=== PATIENT | female | born 2000 | race African-American/Black ===

== ENCOUNTER 2022-12-22 11:00 | Emergency (ER) | payer OTHER ==
[2022-12-22 11:56] LABS: Bilirubin Neg (Negative); Blood, Urine Negative (Negative); Clarity Cloudy (Clear); Glucose, Urine (Dipstick) Normal (Negative); Ketone, Urine Negative (Negative); Leukocyte 25 (Negative); Nitrite Negative (Negative); Protein, Urine (Dipstick) 30 mg/dl (Neg-Trace); Specific Gravity, Urine 1.015 (1.005-1.030); Urobilinogen Normal mg/dL (Less than 2)
[2022-12-22 12:03] LABS: CAUTI Indications for Culture Pregnancy; RBC/HPF None Seen HPF (0-3); WBC/HPF None Seen HPF (0-3)
[2022-12-22 12:04] LABS: Bacteria/HPF 1+ HPF (None Seen)
[2022-12-22 12:05] LABS: Urine Culture Reflex Yes Yes
[2022-12-22] MEDS ORDERED: Acetaminophen 500 MG TAB ONE (13:10)
== END 2022-12-22 13:10 | disposition home or self-care (01) ==
LOC: CSHERS 11:00
DX: O99.891 Other specified diseases and conditions complicating pregnancy (principal); R10.31 Right lower quadrant pain; R10.32 Left lower quadrant pain; O10.912 Unspecified pre-existing hypertension complicating pregnancy, second trimester; V43.02XA Car driver injured in collision with other type car in nontraffic accident, initial encounter; Y93.89 Activity, other specified; Y92.481 Parking lot as the place of occurrence of the external cause; Z3A.15 15 weeks gestation of pregnancy
CPT/HCPCS: 76815; 81001; 84702; 86900; 86901; 87086

== ENCOUNTER 2023-01-16 19:49 | Day surgery (SDC) | payer OTHER ==
[2023-01-16 20:45] LABS: #Eosinphils 0.2 10x3/uL (0.0-0.5); #Monocytes 0.7 10x3/uL (0.0-1.1); %Basophils 0.4 % (0.0-2.0); %Eosinophils 3.4 % (0.0-6.0); %Monocytes 10.1 % (0.0-10.0); %Neutrophils 58.8 % (40.0-75.0); Hematocrit 33.4 % (34.9-44.5); Hemoglobin 11.4 g/dL (12.0-15.5); Mean Corpuscular HGB CONC 34.1 g/dL (32.0-36.0); Mean Corpuscular Hemoglobin 29.8 pg (27.0-33.0); Mean Corpuscular Volume 87.2 fl (81.6-98.3); Mean Platelet Volume 10.2 fl (7.4-10.4); Platelet Count 264 10x3/uL (150-450); RBC Distribution Width 13.8 % (11.5-14.5); Red Blood Cell (RBC) Count 3.83 10x6/uL (3.90-5.03); White Blood Cell (WBC) Count 6.9 10x3/uL (3.5-10.5)
[2023-01-16 20:45] LABS: Bilirubin Neg (Negative); Blood, Urine 250 (Negative); Clarity Slightly Cloudy (Clear); Glucose, Urine (Dipstick) Normal (Negative); Ketone, Urine Negative (Negative); Leukocyte 100 (Negative); Nitrite Negative (Negative); Protein, Urine (Dipstick) 30 mg/dl (Neg-Trace); Specific Gravity, Urine 1.015 (1.005-1.030); Urobilinogen Normal mg/dL (Less than 2)
[2023-01-16 20:52] LABS: RBC/HPF Greater than 50 HPF (0-3)
[2023-01-16 20:53] LABS: Bacteria/HPF Rare-Few HPF (None Seen); CAUTI Indications for Culture Acute Hematuria
[2023-01-16 20:55] LABS: Urine Culture Reflex No No
[2023-01-16 21:00] LABS: ALT (SGPT) 12 U/L (8-55); AST (SGOT) 21 U/L (5-34); Albumin 3.6 g/dL (3.5-5.0); Alkaline Phosphatase 66 U/L (40-100); Anion Gap 16 mmol/L (10-20); BUN (Urea Nitrogen) 5 mg/dL (7.0-18.7); Bilirubin, Total Less than 0.2 mg/dL (0.2-1.2); Calc. Creatinine Clearance 0 mL/min (70-130); Calcium 9.6 mg/dL (7.8-10.44); Carbon Dioxide 19 mmol/L (22-29); Chloride 105 mmol/L (98-107); Estimated GFR 130; Globulin 3.9 g/dL (2.4-3.5); Glucose 96 mg/dL (70-105); Potassium 3.4 mmol/L (3.5-5.1); Protein, Total 7.5 g/dL (6.0-8.3); Sodium 137 mmol/L (136-145)
[2023-01-16 22:45] VITALS: BMI 30.2
== END 2023-01-16 23:57 | disposition home or self-care (01) ==
LOC: CSHERS 19:49 → CSHLD/OP 22:19 → CSHLD 22:33 → UNDOADMOB 22:33 → CSHLD 23:00 → CSHLD/OP 23:57
PROVIDERS: ATTEND Family Medicine
DX: O99.891 Other specified diseases and conditions complicating pregnancy (principal); R31.9 Hematuria, unspecified; R10.30 Lower abdominal pain, unspecified; M54.50 Low back pain, unspecified; O09.212 Supervision of pregnancy with history of pre-term labor, second trimester; Z3A.18 18 weeks gestation of pregnancy
CPT/HCPCS: 76815; 80053; 81001; 84702; 85025; 86900; 86901; 99283

== ENCOUNTER 2023-01-25 12:17 | Outpatient (CLI) | payer OTHER | END 2023-01-25 12:18 | disposition home or self-care (01) | LOC: CSHULT 12:17 | PROVIDERS: ATTEND Nurse Practitioner Women's Health | DX: O09.892 Supervision of other high risk pregnancies, second trimester (principal); Z3A.20 20 weeks gestation of pregnancy | CPT/HCPCS: 76805 ==

== ENCOUNTER 2023-03-12 12:44 | Day surgery (SDC) | payer OTHER ==
[2023-03-12 13:13] VITALS: BMI 30.5
[2023-03-12] MEDS ORDERED: Cyclobenzaprine 10 MG TAB PO SCH (14:00)
[2023-03-12] MEDS ORDERED: Acetaminophen 500 MG TAB PO SCH (14:00)
[2023-03-12 14:18] LABS: Bilirubin Neg (Negative); Blood, Urine Negative (Negative); Clarity Cloudy (Clear); Glucose, Urine (Dipstick) Normal (Negative); Ketone, Urine Negative (Negative); Leukocyte 25 (Negative); Nitrite Negative (Negative); Protein, Urine (Dipstick) Negative (Neg-Trace); Urobilinogen Normal mg/dL (Less than 2)
[2023-03-12 14:35] LABS: CAUTI Indications for Culture Pelvic or flank pain; RBC/HPF 0-3 HPF (0-3)
[2023-03-12 14:36] LABS: Bacteria/HPF 1+ HPF (None Seen)
[2023-03-12 14:38] LABS: Urine Culture Reflex No No
[2023-03-12] MEDS ORDERED: cefTRIAXone (ROCEPHIN) 1 GM VIAL IM SCH ×2 (14:45→15:00)
[2023-03-12] MEDS ORDERED: Lidocaine 1% PF 5 ML VIAL FS SCH (15:00)
== END 2023-03-12 15:25 | disposition home or self-care (01) ==
LOC: CSHLD/OP 12:44
PROVIDERS: ATTEND Family Medicine
DX: O99.891 Other specified diseases and conditions complicating pregnancy (principal); R10.2 Pelvic and perineal pain; O34.211 Maternal care for low transverse scar from previous cesarean delivery; O23.43 Unspecified infection of urinary tract in pregnancy, third trimester; N39.0 Urinary tract infection, site not specified; Z79.899 Other long term (current) drug therapy; Z3A.26 26 weeks gestation of pregnancy
CPT/HCPCS: 81001; 87480; 87510; 87660; J0696

== ENCOUNTER 2023-03-22 14:06 | Day surgery (SDC) | payer OTHER ==
[2023-03-22 14:47] VITALS: BMI 30.5
[2023-03-22] MEDS ORDERED: hydrALAZINE 20 MG/ML VIAL SLOW IVP PRN (15:10)
[2023-03-22 15:41] LABS: Bilirubin Neg (Negative); Blood, Urine Negative (Negative); Clarity Clear (Clear); Glucose, Urine (Dipstick) Normal (Negative); Ketone, Urine Negative (Negative); Leukocyte 25 (Negative); Nitrite Negative (Negative); Protein, Urine (Dipstick) 30 mg/dl (Neg-Trace); Specific Gravity, Urine 1.015 (1.005-1.030); Urobilinogen Normal mg/dL (Less than 2)
[2023-03-22 16:01] LABS: Bacteria/HPF None Seen HPF (None Seen); RBC/HPF 0-3 HPF (0-3); Squamous Epithelial 0-3 HPF (0-3); WBC/HPF 0-3 HPF (0-3)
[2023-03-22] MEDS ORDERED: Acetaminophen 500 MG TAB PO SCH (16:30)
== END 2023-03-22 17:00 | disposition home or self-care (01) ==
LOC: CSHLD/OP 14:06
PROVIDERS: ATTEND Family Medicine
DX: O99.891 Other specified diseases and conditions complicating pregnancy (principal); M54.9 Dorsalgia, unspecified; Z3A.28 28 weeks gestation of pregnancy; Z79.899 Other long term (current) drug therapy
CPT/HCPCS: 76815; 81003; 81015; 87086; 99283

== ENCOUNTER 2023-04-16 20:53 | Day surgery (SDC) | payer OTHER ==
[2023-04-16] MEDS ORDERED: hydrALAZINE 20 MG/ML VIAL SLOW IVP PRN (22:05)
[2023-04-16] MEDS ORDERED: Acetaminophen 500 MG TAB PO SCH (22:15)
[2023-04-16 22:34] VITALS: BMI 29.7
[2023-04-16 22:48] LABS: #Basophils 0.1 10x3/uL (0.0-0.2); #Eosinphils 0.2 10x3/uL (0.0-0.5); #Monocytes 0.9 10x3/uL (0.0-1.1); #Neutrophils 4.5 10x3/uL (1.5-8.4); %Basophils 0.8 % (0.0-2.0); %Eosinophils 2.2 % (0.0-6.0); %Lymphocytes 22.9 % (18.0-47.0); %Monocytes 12.3 % (0.0-10.0); %Neutrophils 61.4 % (40.0-75.0); Hematocrit 30.9 % (34.9-44.5); Hemoglobin 10.1 g/dL (12.0-15.5); Mean Corpuscular HGB CONC 32.7 g/dL (32.0-36.0); Mean Corpuscular Hemoglobin 28.5 pg (27.0-33.0); Mean Platelet Volume 10.2 fl (7.4-10.4); Platelet Count 279 10x3/uL (150-450); RBC Distribution Width 13.4 % (11.5-14.5); Red Blood Cell (RBC) Count 3.55 10x6/uL (3.90-5.03); White Blood Cell (WBC) Count 7.3 10x3/uL (3.5-10.5)
[2023-04-16 23:22] LABS: ALT (SGPT) 13 U/L (8-55); AST (SGOT) 20 U/L (5-34); Albumin 3.4 g/dL (3.5-5.0); Alkaline Phosphatase 112 U/L (40-110); Anion Gap 12 mmol/L (10-20); BUN (Urea Nitrogen) 7 mg/dL (7.0-18.7); Bilirubin, Total 0.2 mg/dL (0.2-1.2); Calc. Creatinine Clearance 183 mL/min (70-130); Calcium 8.9 mg/dL (7.8-10.44); Carbon Dioxide 22 mmol/L (22-29); Chloride 105 mmol/L (98-107); Estimated GFR 128; Glucose 79 mg/dL (70-105); Potassium 3.5 mmol/L (3.5-5.1); Protein, Total 7.4 g/dL (6.0-8.3); Sodium 135 mmol/L (136-145)
== END 2023-04-16 23:48 | disposition home or self-care (01) ==
LOC: CSHLD/OP 20:53
PROVIDERS: ATTEND Family Medicine
DX: O47.03 False labor before 37 completed weeks of gestation, third trimester (principal); O34.211 Maternal care for low transverse scar from previous cesarean delivery; O99.891 Other specified diseases and conditions complicating pregnancy; R51.9 Headache, unspecified; R03.0 Elevated blood-pressure reading, without diagnosis of hypertension; O99.013 Anemia complicating pregnancy, third trimester; D64.9 Anemia, unspecified; O23.593 Infection of other part of genital tract in pregnancy, third trimester; B96.89 Other specified bacterial agents as the cause of diseases classified elsewhere; Z79.899 Other long term (current) drug therapy; Z87.59 Personal history of other complications of pregnancy, childbirth and the puerperium; Z3A.31 31 weeks gestation of pregnancy
CPT/HCPCS: 80053; 82570; 84156; 85025; 87480; 87510; 87660

== ENCOUNTER 2023-04-23 04:14 | Day surgery (SDC) | payer OTHER ==
[2023-04-23 04:32] VITALS: BMI 30.7
[2023-04-23] MEDS ORDERED: hydrALAZINE 20 MG/ML VIAL SLOW IVP PRN (05:12)
[2023-04-23] MEDS ORDERED: Lactated Ringer's 1,000 ML IV SCH (05:15)
[2023-04-23 05:54] LABS: Bilirubin Neg (Negative); Blood, Urine Negative (Negative); Glucose, Urine (Dipstick) Normal (Negative); Ketone, Urine Negative (Negative); Leukocyte 100 (Negative); Nitrite Negative (Negative); Protein, Urine (Dipstick) Negative (Neg-Trace); Urobilinogen Normal mg/dL (Less than 2)
[2023-04-23 05:56] LABS: #Basophils 0.1 10x3/uL (0.0-0.2); #Eosinphils 0.1 10x3/uL (0.0-0.5); #Monocytes 0.8 10x3/uL (0.0-1.1); #Neutrophils 4.4 10x3/uL (1.5-8.4); %Basophils 0.7 % (0.0-2.0); %Eosinophils 1.8 % (0.0-6.0); %Lymphocytes 21.2 % (18.0-47.0); %Monocytes 11.2 % (0.0-10.0); %Neutrophils 64.4 % (40.0-75.0); Hematocrit 31.8 % (34.9-44.5); Hemoglobin 10.4 g/dL (12.0-15.5); Mean Corpuscular HGB CONC 32.7 g/dL (32.0-36.0); Mean Corpuscular Hemoglobin 28.3 pg (27.0-33.0); Mean Corpuscular Volume 86.6 fl (81.6-98.3); Mean Platelet Volume 10.6 fl (7.4-10.4); Platelet Count 261 10x3/uL (150-450); RBC Distribution Width 14.5 % (11.5-14.5); Red Blood Cell (RBC) Count 3.67 10x6/uL (3.90-5.03); White Blood Cell (WBC) Count 6.8 10x3/uL (3.5-10.5)
[2023-04-23 06:06] LABS: Clarity Clear (Clear)
[2023-04-23 06:11] LABS: ALT (SGPT) 12 U/L (8-55); AST (SGOT) 23 U/L (5-34); Albumin 3.3 g/dL (3.5-5.0); Alkaline Phosphatase 102 U/L (40-110); Anion Gap 15 mmol/L (10-20); BUN (Urea Nitrogen) 4 mg/dL (7.0-18.7); Bacteria/HPF Rare-Few HPF (None Seen); Bilirubin, Total 0.2 mg/dL (0.2-1.2); CAUTI Indications for Culture Pregnancy; Calc. Creatinine Clearance 212 mL/min (70-130); Calcium 8.8 mg/dL (7.8-10.44); Carbon Dioxide 16 mmol/L (22-29); Chloride 108 mmol/L (98-107); Estimated GFR 131; Globulin 3.9 g/dL (2.4-3.5); Glucose 77 mg/dL (70-105); Potassium 3.7 mmol/L (3.5-5.1); Protein, Total 7.2 g/dL (6.0-8.3); RBC/HPF 0-3 HPF (0-3); Sodium 135 mmol/L (136-145); Squamous Epithelial 0-3 HPF (0-3); WBC/HPF 0-3 HPF (0-3)
[2023-04-23 06:12] LABS: Urine Culture Reflex Yes Yes
[2023-04-23] MEDS ORDERED: cefTRIAXone\\ROCEPHIN 1 GM in Sodium Chloride 0.9% 100 ML IVPB SCH (07:30)
== END 2023-04-23 08:40 | disposition home health service (06) ==
LOC: CSHLD/OP 04:14
PROVIDERS: ATTEND Family Medicine
DX: O47.03 False labor before 37 completed weeks of gestation, third trimester (principal); O99.013 Anemia complicating pregnancy, third trimester; D64.9 Anemia, unspecified; O23.43 Unspecified infection of urinary tract in pregnancy, third trimester; N39.0 Urinary tract infection, site not specified; O34.13 Maternal care for benign tumor of corpus uteri, third trimester; Z86.73 Personal history of transient ischemic attack (TIA), and cerebral infarction without residual deficits; Z79.899 Other long term (current) drug therapy; Z3A.32 32 weeks gestation of pregnancy
CPT/HCPCS: 36415; 80053; 81001; 85025; 87086; 96360; 96366; 99283; J0696; J3490

== ENCOUNTER 2023-04-24 12:02 | Day surgery (SDC) | payer OTHER ==
[2023-04-24 12:29] VITALS: BMI 30.7
== END 2023-04-24 13:45 | disposition home or self-care (01) ==
LOC: CSHLD/OP 12:02 → EDSTATUS 12:14 → CSHLD/OP 13:45
PROVIDERS: ATTEND Family Medicine
DX: O47.03 False labor before 37 completed weeks of gestation, third trimester (principal); O99.013 Anemia complicating pregnancy, third trimester; D64.9 Anemia, unspecified; O23.43 Unspecified infection of urinary tract in pregnancy, third trimester; O34.211 Maternal care for low transverse scar from previous cesarean delivery; Z86.73 Personal history of transient ischemic attack (TIA), and cerebral infarction without residual deficits; Z79.899 Other long term (current) drug therapy; Z3A.32 32 weeks gestation of pregnancy
CPT/HCPCS: 99282

== ENCOUNTER 2023-05-07 08:27 | Day surgery (SDC) | payer OTHER ==
[2023-05-07 09:00] VITALS: BMI 30.5
[2023-05-07] MEDS ORDERED: hydrALAZINE 20 MG/ML VIAL SLOW IVP PRN (09:41)
[2023-05-07] MEDS ORDERED: Lactated Ringer's 1,000 ML IV SCH (09:45)
[2023-05-07 10:00] LABS: Bilirubin Neg (Negative); Blood, Urine Negative (Negative); Clarity Clear (Clear); Glucose, Urine (Dipstick) Normal (Negative); Ketone, Urine Negative (Negative); Leukocyte Negative (Negative); Nitrite Negative (Negative); Protein, Urine (Dipstick) 15 mg/dl (Neg-Trace); Specific Gravity, Urine 1.015 (1.005-1.030); Urobilinogen Normal mg/dL (Less than 2); pH, Urine 6.5 (5.0-9.0)
[2023-05-07 10:15] LABS: Bacteria/HPF None Seen HPF (None Seen); CAUTI Indications for Culture Pregnancy; RBC/HPF None Seen HPF (0-3); Squamous Epithelial 0-3 HPF (0-3); WBC/HPF None Seen HPF (0-3)
[2023-05-07 10:17] LABS: Urine Culture Reflex Yes Yes
[2023-05-07] MEDS: Terbutaline Sulfate 1 MG/ML VIAL SC SCH (12:44)
== END 2023-05-07 13:28 | disposition home or self-care (01) ==
LOC: CSHLD/OP 08:27
PROVIDERS: ATTEND Family Medicine
DX: O47.03 False labor before 37 completed weeks of gestation, third trimester (principal); O36.8330 Maternal care for abnormalities of the fetal heart rate or rhythm, third trimester, not applicable or unspecified; R00.0 Tachycardia, unspecified; O00.01 Abdominal pregnancy with intrauterine pregnancy; O34.211 Maternal care for low transverse scar from previous cesarean delivery; Z79.899 Other long term (current) drug therapy; Z3A.34 34 weeks gestation of pregnancy
CPT/HCPCS: 76819; 81001; 87086; J3105

== ENCOUNTER 2023-05-19 05:24 | Inpatient (IN) | payer OTHER ==
[2023-05-18 11:53] LABS: Hematocrit 32.3 % (34.9-44.5); Hemoglobin 10.3 g/dL (12.0-15.5); Platelet Count 257 10x3/uL (150-450)
[2023-05-18 13:15] LABS: HBSAg Index 0.29 S/CO (0-0.99); Hep B Surf Ag Non-Reactive S/CO (NonReactive)
[2023-05-18 13:17] LABS: Syphilis Antibody Nonreactive (Nonreactive); Syphilis Antibody Index 0.06 S/CO (<1.00 Non-Reactive)
[2023-05-19] MEDS: Lactated Ringer's 1,000 ML IV SCH (06:00)
[2023-05-19] MEDS ORDERED: Bicitra 30 ML UDCUP PO PRN (06:20)
[2023-05-19] MEDS ORDERED: Promethazine HCl 25 MG/ML VIAL IM PRN ×3 (06:20→13:37)
[2023-05-19] MEDS ORDERED: Misoprostol 200 MCG TAB PR PRN (06:20)
[2023-05-19] MEDS ORDERED: Carboprost 250 MCG/ML AMP IM PRN (06:20)
[2023-05-19] MEDS ORDERED: Methylergonovine 0.2 MG/ML VIAL IM PRN (06:20)
[2023-05-19] MEDS ORDERED: hydrALAZINE 20 MG/ML VIAL SLOW IVP PRN ×2 (06:20→13:37)
[2023-05-19] MEDS ORDERED: Oxytocin 30 units/NS 500 ML 500 ML IV SCH (06:20)
[2023-05-19] MEDS ORDERED: Tranexamic Acid 1,000 MG/10 ML VIAL IVP PRN (06:20)
[2023-05-19] MEDS ORDERED: Ondansetron PF 4 MG/2 ML Vial IVP PRN ×4 (06:20→13:37)
[2023-05-19] MEDS ORDERED: Diphenoxylate HCl/Atropine Tablet PO PRN (06:20)
[2023-05-19 06:26] VITALS: BMI 31.4
[2023-05-19] MEDS: Famotidine/PF 20 mg/2ml Vial SLOW IVP PRN (08:25)
[2023-05-19] MEDS: CEFAZOLIN 2 GM in Sodium Chloride 0.9% 100 ML IVPB SCH (08:25)
[2023-05-19] MEDS ORDERED: fentaNYL 50 mcg/mL 1 mL Vial SLOW IVP PRN (10:25)
[2023-05-19] MEDS ORDERED: Naloxone HCl 0.4 mg/ml Vial IV PRN (10:25)
[2023-05-19] MEDS ORDERED: Naloxone HCl 0.4 mg/ml Vial IVP PRN ×2 (10:25)
[2023-05-19] MEDS ORDERED: Promethazine HCl 25 MG SUPP PR PRN (10:25)
[2023-05-19] MEDS ORDERED: Ketorolac Tromethamine 30 MG (1 mL) VIAL IVP PRN (10:25)
[2023-05-19] MEDS ORDERED: Meperidine HCl/PF 25 MG (1 mL) VIAL SLOW IVP PRN (10:25)
[2023-05-19] MEDS ORDERED: Moisturizing Cream (Eucerin) 113 GM JAR TOP PRN (10:25)
[2023-05-19] MEDS ORDERED: HYDROmorphone 0.5 MG/0.5 ML SYRINGE SLOW IVP PRN (10:25)
[2023-05-19] MEDS ORDERED: Communication Order-Pharmacy FS SCH (10:30)
[2023-05-19] MEDS ORDERED: Lanolin Ointment 7 GM TUBE TOP PRN (13:37)
[2023-05-19] MEDS ORDERED: Boostrix 0.5 ML (Tdap) VIAL (>/=7 yrs of age) IM ONE (13:37)
[2023-05-19] MEDS ORDERED: Bisacodyl 10 MG SUPP PR PRN (13:37)
[2023-05-19] MEDS ORDERED: Simethicone Chewable 80 MG TAB PO PRN (13:37)
[2023-05-19] MEDS ORDERED: diphenhydrAMINE 25 MG CAP PO PRN (13:37)
[2023-05-19] MEDS: Ketorolac Tromethamine 30 MG (1 mL) VIAL ONE (13:45)
[2023-05-19] MEDS: ePHEDrine Sulfate 50 MG/10 ML VIAL ONE (13:45)
[2023-05-19] MEDS: Dexamethasone 4 mg/ml Vial ONE (13:45)
[2023-05-19] MEDS: Glycopyrrolate 0.2 MG/ML 5 ML SYRINGE ONE (13:45)
[2023-05-19] MEDS: Ondansetron PF 4 MG/2 ML Vial ONE (13:46)
[2023-05-19] MEDS: Morphine PF 10 MG/10 ML VIAL ONE (13:46)
[2023-05-19] MEDS: diphenhydrAMINE 50 MG/ML VIAL ONE (13:47)
[2023-05-19] MEDS: Docusate 100 MG CAP PO SCH ×2 (13:47→21:31)
[2023-05-19] MEDS: PHENYLEPHRINE-NS 100 MCG/ML 10 ML SYRINGE ONE (13:47)
[2023-05-19] MEDS: Phenylephrine 40 MG/NS 250 ML 0 ML ONE (13:47)
[2023-05-19] MEDS: Oxytocin 10 UNITS/ML VIAL ONE (13:47)
[2023-05-19] MEDS: Ferrous Sulfate 325 MG TAB PO SCH ×2 (13:48→21:30)
[2023-05-19] MEDS: Prenatal Vitamin 1 TAB PO SCH (13:48)
[2023-05-19] MEDS: diphenhydrAMINE 50 MG/ML VIAL IVP PRN (15:29)
[2023-05-19] MEDS: Ketorolac Tromethamine 30 MG (1 mL) VIAL IVP SCH (15:30)
[2023-05-19] MEDS ORDERED: HYDROcodone/Acetaminophen 5/325 mg Tablet PO PRN (22:30)
[2023-05-20 04:17] LABS: Hematocrit 29.6 % (34.9-44.5); Hemoglobin 9.3 g/dL (12.0-15.5); Mean Corpuscular HGB CONC 31.4 g/dL (32.0-36.0); Mean Corpuscular Volume 85.8 fl (81.6-98.3); Mean Platelet Volume 10.9 fl (7.4-10.4); Platelet Count 227 10x3/uL (150-450); RBC Distribution Width 14.1 % (11.5-14.5); Red Blood Cell (RBC) Count 3.45 10x6/uL (3.90-5.03); White Blood Cell (WBC) Count 10.4 10x3/uL (3.5-10.5)
[2023-05-20] MEDS: Prenatal Vitamin 1 TAB PO SCH (08:48)
[2023-05-20] MEDS: HYDROcodone/Acetaminophen 5/325 mg Tablet PO PRN (10:54)
[2023-05-20] MEDS: Ibuprofen 800 MG TAB PO SCH (12:59)
[2023-05-21] MEDS: Ketorolac Tromethamine 30 MG (1 mL) VIAL IVP SCH (12:45)
[2023-05-22] MEDS: Ibuprofen 800 MG TAB PO SCH (05:26)
[2023-05-22 15:06] VITALS: TEMP 98.3
[2023-05-22 15:10] VITALS: BP 115/62
== END 2023-05-22 20:00 | disposition home or self-care (01) | DRG 788 ==
LOC: CSHLD 05:24 → CSHPP 12:59
PROVIDERS: ADMIT Family Medicine; ATTEND Family Medicine
PROC: 10D00Z1 Extraction of Products of Conception, Low, Open Approach (ICD-10-PCS; principal; 2023-05-19)
DX: O34.211 Maternal care for low transverse scar from previous cesarean delivery (principal); D64.9 Anemia, unspecified; O99.02 Anemia complicating childbirth; O99.892 Other specified diseases and conditions complicating childbirth; N73.6 Female pelvic peritoneal adhesions (postinfective); Z3A.36 36 weeks gestation of pregnancy; Z37.0 Single live birth
CPT/HCPCS: 36415; 51702; 85014; 85018; 85027; 85049; 86780; 86850; 86900; 86901; 87340; J1100; J1200; J1885; J2274; J2405; J2590; J3490; J7120; S0028

== ENCOUNTER 2024-04-12 15:46 | Outpatient (CLI) | payer OTHER | END 2024-04-12 15:47 | disposition home or self-care (01) | LOC: CSHULT 15:46 | PROVIDERS: ATTEND Family Medicine | DX: Z34.82 Encounter for supervision of other normal pregnancy, second trimester (principal); Z3A.20 20 weeks gestation of pregnancy | CPT/HCPCS: 76805 ==

== ENCOUNTER 2025-02-05 18:00 | Emergency (ER) | payer OTHER ==
[2025-02-05 18:29] LABS: Glucose, Urine (Dipstick) Normal (Negative); Leukocyte 500 (Negative); Pregnancy Test - Urine (BHCG) Negative (Negative); Pregu Control Background? CLEAR/WHITE (CLR/WHITE); Pregu Control Bar Appear? YES (CONTROL BAR); Protein, Urine (Dipstick) 30 mg/dl (Neg-Trace); Specific Gravity, Urine 1.020 (1.005-1.030)
[2025-02-05 19:00] LABS: Bacteria/HPF 2+ HPF (None Seen); CAUTI Indications for Culture Pelvic or flank pain; RBC/HPF 0-3 HPF (0-3); WBC/HPF 21-50 HPF (0-3)
[2025-02-05 19:02] LABS: Urine Culture Reflex Yes Yes
== END 2025-02-05 19:30 | disposition home or self-care (01) ==
LOC: CSHERS 18:00
DX: N39.0 Urinary tract infection, site not specified (principal); I10 Essential (primary) hypertension
CPT/HCPCS: 81001; 81025; 87086; 93005; 93010; 99284